=== PATIENT | male | born 1945 | race Caucasian/White ===

== ENCOUNTER 2020-02-17 12:38 | Emergency (ER) | payer MEDICARE, MEDICAID, SELFPAY ==
[2020-02-17] VITALS (21 sets, daily range): BP systolic 54–187; BP diastolic 41–123; PULSE 0–154; RESP 12–83; TEMP 39.4; O2SAT 93–96; BMI 26.4
[2020-02-17] MEDS: succinylcholine 20 mg/mL SDV 10mL 160 MG IVP (12:45)
[2020-02-17] MEDS: vecuronium 10 mg SDV IVP (12:49)
--- NOTE | 2020-02-17 12:52 | XRR_ITS ---
PROCEDURE INFORMATION: Exam: XR Chest, 1 View Exam date and time: 02/17/2020 1:22 PM Age: 74 years old Clinical indication: Device placement; Ett placement (vent status); Patient HX: SOB -ett and og placed TECHNIQUE: Imaging protocol: XR of the chest Views: 1 view. COMPARISON: No relevant prior studies available. FINDINGS: Tubes, catheters and devices: Endotracheal and feeding tubes. The endotracheal tube terminates 4 cm above the desirae. Lungs: Emphysematous change, interstitial prominence, and left basilar airspace/pleural disease. Heart/Mediastinum: Cardiomegaly. Bones/joints: Osteopenia and degenerative change. XR/XR chest 1V portable [id number] IMPRESSION: 1. Endotracheal and feeding tubes. The endotracheal tube terminates 4 cm above the desirae. 2. Emphysematous change, interstitial prominence, and left basilar airspace/pleural disease.
--- NOTE | 2020-02-17 13:00 | ECG_ITS ---
Measurements Intervals [place] Rate: 140 P: [place]: 0 QRS: -36 QRSD: 76 T: 79 QT: 250 QTc: 382 ATRIAL FLUTTER/TACHYCARDIA WITH RAPID VENTRICULAR RESPONSE INFERIOR MYOCARDIAL INFARCTION [40+ ms Q WAVE AND/OR ST/T ABNORMALITY IN II/aVF], PROBABLY OLD Compared to ECG 02/19/2015 12:31:56 Myocardial infarct finding now present Sinus bradycardia no longer present Intraventricular conduction delay no longer present T-wave abnormality no longer present Electronically Signed On 02-17-2020 21:02:24 CDT by Mirlande Dunn M.D. [email or web address]
[2020-02-17 13:28] LABS: Troponin(5th) Baseline 49 ng/L (0-15)
[2020-02-17] MEDS: propofol 1,000 MG/100 ML INJ 2.6 MG IV (13:29)
[2020-02-17 13:33] LABS: Alanine Aminotransferase 180 U/L (0-41); Albumin Level 4.3 g/dL (3.5-5.2); Alkaline Phosphatase 154 IU/L (40-130); Anion Gap 25.1 (5-19); Aspartate Amino Transferase 257 U/L (0-40); Blood Urea Nitrogen 29 mg/dL (8-23); Calcium 9.5 mg/dL (8.5-10.5); Carbon Dioxide 19 mmol/L (22-29); Chloride 98 mmol/L (98-107); Globulin 2.6 g/dL (1.3-4.6); Glucose 99 mg/dL (65-115); NT Pro B Type Natriuretic Pept 14742 pg/mL (0-450); Osmolality Calculated 281 mOsm/kg (285-295); Potassium 5.1 mmol/L (3.5-5.1); Sodium 137 mmol/L (136-145); Total Bilirubin 5.6 mg/dL (0.15-1.2); Total Protein 6.9 g/dL (6.6-8.7)
[2020-02-17 13:47] LABS: Basophils # 0.1 10^3/uL (0.0-0.1); Basophils % 0.5 %; Eosinophils # 0.1 10^3/uL (0.0-0.8); Eosinophils % 0.9 %; Hematocrit 54.1 % (42.0-52.0); Hemoglobin 16.4 g/dL (11.7-16.6); Lymphocytes # 0.5 10^3/uL (0.8-4.8); Mean Corpuscular HGB Conc 30.3 g/dL (30.0-36.0); Mean Corpuscular Hemoglobin 31.5 pg (28.0-34.0); Mean Platelet Volume 12.2 fL (7.4-10.4); Monocytes # 0.4 10^3/uL (0.2-0.9); Monocytes % 3.3 %; Neutrophils # 11.6 10^3/uL (1.8-7.7); Neutrophils % 88.6 %; Nucleated Red Blood Cells # 0.1 /100WBC; Nucleated Red Blood Cells % 0.8 %; Platelet Count 52 10^3/cmm (130-400); Red Cell Distribution Width 12.9 % (12.1-15.1); White Blood Count 13.1 10^3/uL (4.0-10.0)
[2020-02-17 13:53] LABS: Lactate (Lactic Acid level) 6.7 mmol/L (0.5-2.2)
[2020-02-17 14:24] LABS: ABG PCO2 57.4 mmHg (35-45); ABG PH Result 7.19 (7.35-7.45); Base Excess ABG -7.4 mmol/L (-2.0-2.0); Blood Gas Allen Test Pos; Blood Gas Operator Identificat glc; Blood Gas Sample Site Radial, left; Blood Gas Sample Type Arterial; Blood Gas Tidal Volume 0.5; HCO3 ABG 21.9 mmol/L (22-26); Oxygen Device VENT
[2020-02-17 14:59] LABS: Troponin 5 2HR 55.27 ng/L (0-15); Troponin 5 2HR Delta 6.27 ABS# (0-10)
[2020-02-17 15:12] LABS: Influenza A by IFA Negative (Negative); Influenza B by IFA Negative (Negative)
--- NOTE | 2020-02-17 16:08 | XRR_ITS ---
PROCEDURE INFORMATION: Exam: XR Chest, 1 View Exam date and time: 02/17/2020 4:09 PM Age: 74 years old Clinical indication: Device placement; ETT placement (vent status); Patient HX: Post tube placement; Additional info: Central line placement TECHNIQUE: Imaging protocol: XR of the chest Views: Frontal portable supine view of the chest. COMPARISON: CR XR chest 1V portable [id number] 02/17/2020 1:09 PM FINDINGS: Tubes, catheters and devices: The endotracheal tube tip is approximately 5.5 cm above the desirae. The feeding tube tip is not seen below the lower thoracic level, possibly due to technical factors. EKG leads are present overlying the chest. The right internal jugular venous catheter tip is in the cavoatrial junction. Lungs: Stable left basilar pulmonary subsegmental atelectasis. Mild medial right basilar pulmonary subsegmental atelectasis. The lungs are otherwise peripherally clear bilaterally. The pulmonary vasculature is normal. Pleural space: No definite pleural effusion. No pneumothorax. Heart/Mediastinum: The heart is normal in size and contour. Mediastinum: Stable. Bones/joints: Stable. XR/XR chest 1V portable [id number] IMPRESSION: 1. Stable left basilar pulmonary subsegmental atelectasis. 2. Mild medial right basilar pulmonary subsegmental atelectasis.
[2020-02-17] MEDS: sodium bicarbonate 8.4% 1 mEq/mL 50mL Syr 50 MEQ IVP (16:20)
--- NOTE | 2020-02-17 16:57 | PM.HP ---
Providers/Chief Complaint Primary Care Provider: Leslie Broderick Chief Complaint: SOB History of Present Illness Anton Orellana is a 74 year old male, Medications/Allergies Home Medications Medication Instructions Recorded Confirmed Last Taken Type albuterol sulfate 1 puff INHALATION Q4H PRN 02/17/20 02/17/20 Unknown History aspirin 81 mg PO DAILY 02/17/20 02/17/20 Unknown History cimetidine 400 mg PO BID 02/17/20 02/17/20 Unknown History dextromethorphan-guaifenesin 1 tab PO Q12H PRN 02/17/20 02/17/20 Unknown History [Mucinex DM] [id number]-[id number]-[id number] 1 inh INHALATION DAILY 02/17/20 02/17/20 Unknown History [Trelegy Ellipta] furosemide [Lasix] 20 mg PO DAILY 02/17/20 02/17/20 Unknown History meloxicam 15 mg PO DAILY 02/17/20 02/17/20 Unknown History metoprolol tartrate 25 mg PO BID 02/17/20 02/17/20 Unknown History pantoprazole 40 mg PO DAILY 02/17/20 02/17/20 Unknown History potassium chloride 10 meq PO BID 02/17/20 02/17/20 Unknown History rosuvastatin [Crestor] 10 mg PO DAILY 02/17/20 02/17/20 Unknown History Allergies Allergy/AdvReac Type Severity Reaction Status Date / Time codeine [From Robitussin A-C] Allergy Unknown Verified 02/17/20 12:49 guaifenesin Allergy Unknown Verified 02/17/20 12:49 [From Robitussin A-C] hydrocodone Allergy Unknown Verified 02/17/20 12:49 simvastatin [From Zocor] Allergy Unknown Verified 02/17/20 12:49 Vitals/I&O/Wt Last Vital Signs Temp 103.0 F H 02/17/20 12:46 Pulse 135 H 02/17/20 14:40 Resp 21 H 02/17/20 14:40 BP 77/62 02/17/20 14:40 Pulse Ox 96 02/17/20 13:52 Weight last 48 hrs Weight 86.183 kg Data : 02/17/20 13:38 02/17/20 12:10 Micro: Microbiology 02/17/20 13:25 Gram Stain - Final Sputum - Endotracheal Tube Aspirate 02/17/20 13:38 Blood Culture - Preliminary Blood SPECIMEN COLLECTED 02/17/20 12:50 Blood Culture - Preliminary Blood SPECIMEN COLLECTED Coding Level of Care Code 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
[2020-02-17] MEDS: DOPamine drip 400 MG/250 ML PREMIX 16.2 MG IV (17:12)
--- NOTE | 2020-02-17 17:42 | P.DES_ITS ---
Discharge Providers DDS Date Summary Completed: 02/17/20 Attending Provider at Admission: Time of : 16:42 Primary Care Provider: Leslie LONDON Diagnoses Hospital Diagnoses (1) Acute respiratory failure with hypoxia: (2) Lactic acidosis: (3) Septic shock: (4) Acute pulmonary edema: (5) Acute exacerbation of congestive heart failure: (6) Pneumonia: (7) COVID-19 virus test result unknown: (8) NSTEMI (non-ST elevated myocardial infarction): Reason for Visit Reason for Visit: SOB Summary Date and Time of : Date of : 02/17/20 Time of : 16:42 Summary: Summary: Anton Orellana is a 74 year old male, with a past medical history of CAD status post stenting x3, history of multiple myocardial infarcts, history of stroke, history of CHF, history of liver cirrhosis, history of hypertension, history of hyperlipidemia, history of GERD, history of severe emphysema with COPD who presents to [facility] as a transfer from [facility] due to complaints of shortness of breath. All the history was obtained by family at bedside, and family over the phone as patient was intubated. According to family members roughly a month ago, patient has had a COPD exacerbation, had fevers, was tested for COVID was negative, got antibiotics, steroids, slightly improved. Patient lives by himself, has 3 daughters, 2 daughters and [place]. According to daughter, for the last few days, patient has had progressive shortness of breath, complaints of fevers, weakness, complaints of chest pain. Patient called his daughter this morning, stating that he was severely short of breath and having chest pain, so he was taken to [facility] room [facility]. According to ER physician, at [facility], he was diagnosed with heart failure exacerbation, pulmonary edema, given Lasix, but did not improve. He was transferred to [facility], and [facility] patient was found to have acute hypoxic respiratory failure, was found to be in respiratory distress, so was intubated by ER physician, he was also found to be fairly tachycardic, was given metoprolol, became hypotensive, was placed on Levophed. Patient was quite hypotensive, sounded septic, with hypotensive episodes, temperature of 103, tachycardic heart rate 130s, white blood cell count of 13.1, lactic acid of 6.7, ABG pH 7.1, creatinine 2.3, BNP 14 742, chest x-ray showed bilateral pulmonary edema, bibasilar subsegmental atelectasis, medial right basilar 6 pulmonary subsegmental atelectasis. I was called for admission, looked like at that point patient was septic, septic shock, secondary to likely pneumonia, I was highly concerned for COVID-19, COVID-19 testing was ordered, also there was concern for severe heart failure, and NSTEMI. I advised ER physician Dr. Severino to place central line, and transfer patient to ICU, with plans on broad-spectrum antibio tics, diuresis, COVID-19 precautions, fentanyl, propofol, art line placement. When I arrived to the ICU, I was told by ER physician that during central line placement, patient had coded, patient went into asystole with no pulse, he received 2 rounds of epi, bicarb, went into PEA, then sinus tachycardia with a pulse. The code lasted roughly 6 minutes. 1 of patient's daughters was at bedside, I discussed patient patient's daughter patient's critical status, poor prognosis, likely patient has septic shock, sepsis secondary pneumonia, COVID- 19, pulmonary edema, acute flash pulmonary edema, heart failure, and NSTEMI. We can continue all medical interventions, versus making him comfort. Patient's daughter stated above everything else, she wants her father to remain comfortable. But wanted to him to remain a full code, wanted to continue all medical interventions and last something changed. I had put in all my orders for patient to get antibiotics, Lasix, propofol, fentanyl, all my ICU orders. I try to go outside to find family members, but patient's family members were not there. Again patient went into a PEA did not have a pulse, I was present during this code, he had epi running, he got 1 mg of epi in addition, got bicarb, got chest compressions, CPR, went back into sinus tachycardia with a pulse. I spoke to patient daughter at bedside, advised that patient's status is quite critical, prognosis is quite poor, that if he were to code again what would she want us to do. She stated that above all she did not want him to suffer, and if he were to code again, or his heart were to stop she wanted us not to perform CPR again, she did not want any drugs as per ACLS, and she just wanted him to pass away comfortably. Patient at this point was on the ventilator. I also spoke to patient's 2 sisters over the phone, who are in [place], they agreed that above else they wanted their father to remain comfortable, if his heart were to stop again, or he were to go into an abnormal rhythm, they wanted no more chest compressions, no more drugs per ACLS, they wanted him to remain comfortable. Over the next few minutes, patient again lost his pulse, no carotid pulse was palpable by me, no femoral pulse, rhythm was pulseless electrical activity of the heart, I confirmed with family member at bedside that she did not want any CPR or any drugs as per ACLS, she said no she wanted him to remain comfortable. But she wanted him to remain on the ventilator until her sisters at bedside could arrive. I was concerned about possible COVID-19 exposure to family members, initially I had advised family members that if I am highly suspicious of COVID-19, I would not advise for them to be in the room, and already 1 daughter was in the room already (which was allowed by ER staff and ER physician), however ER physician, and ER staff allowed family members into the room. At this point, patient did not have a pulse, had pulseless electrical electrical activity of the heart, patient's family said their goodbyes, at 4:42 PM patient went into asystole, his ventilation was stopped. Patient was pronounced at 4:42 PM. Had no carotid pulse, no femoral pulse, asystole, was not breathing on his own with a ventilator was stopped. At the time of , COVID-19 testing is not known, and is currently pending Additional Data: Confirmation of as documented by pronouncing clinician: no pulse and no respirations Family: at bedside Additional persons at bedside: nursing staff Attending/PCP notified?: I am attending Was code activated?: Yes Discharge Plan Discharge Prescriptions: No Action cimetidine 400 mg Tablet 400 mg PO BID RF: 0 meloxicam 15 mg Tablet 15 mg PO DAILY RF: 0 potassium chloride 10 mEq Tablet Extended Release 10 meq PO BID RF: 0 pantoprazole 40 mg Tablet,Delayed Release (Dr/Ec) 40 mg PO DAILY RF: 0 aspirin 81 mg Tablet,Chewable 81 mg PO DAILY RF: 0 Lasix 20 mg Tablet 20 mg PO DAILY RF: 0 Mucinex DM 30-600 mg Tablet Extended Release 12 Hr 1 tab PO Q12H PRN (Reason: mucous) RF: 0 albuterol sulfate 90 mcg/actuation Hfa Aerosol Inhaler 1 puff INHALATION Q4H PRN (Reason: Shortness Of Breath) RF: 0 Crestor 10 mg Tablet 10 mg PO DAILY RF: 0 metoprolol tartrate 25 mg Tablet 25 mg PO BID RF: 0 Trelegy Ellipta 100-62.5-25 mcg Blister With Device 1 inh INHALATION DAILY RF: 0 DS Attestations Time Spent in /Discharge Care*: less than 30 min Quality - AMI: AMI present?: No Quality - Stroke: CVA present?: No Quality - VTE: VTE present?: No Coding Level of Care Code Acute Private Branch Exchange Operator for [facility] Fwd Diagnoses Acute respiratory failure with hypoxia J96.01 Lactic acidosis E87.2 Septic shock A41.9; R65.21 Acute pulmonary edema J81.0 Acute exacerbation of congestive heart failure I50.9 Pneumonia J18.9 COVID-19 virus test result unknown Z20.828 NSTEMI (non-ST elevated myocardial infarction) I21.4
--- NOTE | 2020-02-17 19:13 | W.ED.SOB ---
HPI - SOB/Dyspnea General: Chief Complaint: Shortness of Breath/Dyspnea Stated Complaint: SOB Time Seen by Provider: 02/17/20 12:53 Source: EMS and other (Referring facility) Mode of arrival: EMS Limitations: altered mental status and other History of Present Illness: HPI Narrative: Patient is a 74-year-old male who was brought in as a transfer from [facility] in [place] in respiratory distress and hypotensive. According to the report and his daughter the patient was in his usual state of health until yesterday when he started to complain of chest pain and shortness of breath. He eventually decided to go to the emergency department to be seen. In the emergency department at [place] he was noted to be tachycardic and in heart failure. He was then given 40 mg of IV Lasix as well as a total of 5 mg of metoprolol for his heart rate. He is oxygen levels were in the low 90s and so he was placed on oxygen via nasal cannula. After the second dose of metoprolol he started to get hypotensive and also was noted to have reduction in his responsiveness. The patient was tachypneic throughout his stay in their facility. Due to the hypotension he was started on Levophed drip. He was then transferred to this facility for further evaluation. On arrival to our facility the patient was in severe respiratory distress, with an altered mentation. He was tachypneic with very shallow breaths. He was unresponsive and was unable to give a history. Because of the acuity of his condition, respiratory distress and in order to protect his airway a decision was made to immediately intubate the patient on arrival. MD elicited complaint: shortness of breath and chest pain Pertinent past history: COPD and congestive heart failure Onset (ago): day(s) (1) Review of Systems General: Reports: ROS unobtainable due to medical condition and ROS unobtainable due to mental status Physical Exam Narrative: EXAM NARRATIVE: Patient was obtunded, pale, tachypneic and with ineffective shallow respirations. He was febrile on arrival with a temperature of 103 HENMT: COMMON NORMALS: normocephalic and atraumatic HEAD & SCALP: normocephalic and atraumatic Resp: EFFORT & INSPECTION: Yes decreased respiratory effort, Yes pursed lip breathing and Yes labored AUSCULTATION: rales and diminished lung sounds Cardio: RATE: tachycardic GI: COMMON NORMALS: Soft to palpation INSPECTION: Yes normal to inspection PALPATION: Yes Soft to palpation Extremity: GENERAL: Yes edema Procedures Central Line Placement Right IJ: Time Out Performed: Yes Patient Placed on Monitor/Pulse Ox: Yes MD Prep: mask, gown and gloves Central Line Prep: Chlorhexidine scrub Ultrasound Used for Placement: Yes Central Line Lumen Inserted: triple Post Procedure: sutured in place, good blood return, all ports aspirated, flushed, capped and sterile dressing applied Post Procedure X-Ray: tip of catheter in good position and no pneumothorax seen Patient Tolerated Procedure: well Complications: none Intubation sedative: Etomidate Mg Given: 24 paralytic: Succinylcholine Mg Given: 160 Laryngoscope: Keily ET Tube Size: 8 ET Tube Uncuffed: Yes Tube Secured Depth (cm): 26 Tube Secured Location: lips Tube Placement Confirmation: visualized tube passing through cords, equal breath sounds bilaterally, no breath sounds over epigastrium and confirmation by capnometry Patient Tolerated Procedure: well Intubation Complications: none Course Vital Signs: Vital signs: Vital Signs Temperature 103.0 F H 02/17/20 12:46 Pulse Rate 78 02/17/20 16:40 Respiratory Rate 21 H 02/17/20 16:40 Blood Pressure 70/46 02/17/20 16:30 Pulse Oximetry 96 02/17/20 13:52 MDM - SOB/Dyspnea MDM Narrative: Medical decision making narrative: 74-year-old gentleman who came into the department in respiratory failure and septic shock. [facility] where he had complained of chest pain and shortness of breath. While he was there he had progressively worsening hypotension and alteration in his mentation. When he arrived in this facility he was in hypercapnic hypoxic respiratory failure, he was septic, he was in congestive heart failure. He was essentially in multiorgan failure. the patient was very ill and on arrival he was intubated and mechanically ventilated. During his stay in the emergency department he went into cardiac arrest twice, following each episode high-quality CPR was initiated and we achieved ROSC each time. After the second time the family decided that if he went into cardiac arrest again we were not to resuscitate him. During his emergency department stay he needed to be on 2 pressors, was given antibiotics, but because of his severe heart failure was not given any fluids. Despite our best efforts the patient had a third cardiac arrest and was eventually pronounced at 1642 hrs. Medical Records: Attestation: I reviewed the patient's medical records. Lab Data: Attestation: I reviewed the patient's lab results. Labs: Lab Results 02/17/20 02/17/20 02/17/20 Range/Units 12:10 12:10 12:10 WBC (4.0-10.0) 10^3/ uL RBC (4.1-5.3) 10^6/u L Hgb (11.7-16.6) g/dL Hct (42.0-52.0) % MCV (80-94) fL MCH (28.0-34.0) pg MCHC (30.0-36.0) g/dL RDW (12.1-15.1) % Plt Count (130-400) 10^3/c mm MPV (7.4-10.4) fL Neut % (Auto) % Lymph % (Auto) % Phillips % (Auto) % Eos % (Auto) % Baso % (Auto) % Neut # (Auto) (1.8-7.7) 10^3/u L Lymph # (Auto) (0.8-4.8) 10^3/u L Phillips # (Auto) (0.2-0.9) 10^3/u L Eos # (Auto) (0.0-0.8) 10^3/u L Baso # (Auto) (0.0-0.1) 10^3/u L Nucleated RBC % (a uto) % Nucleated RBCs # /100WBC Specimen Type Sample Site ABG pH (7.35-7.45) ABG pCO2 (35-45) mmHg ABG pO2 (80.0-100.0) mmH g ABG HCO3 (22-26) mmol/L ABG Base Excess (-2.0-2.0) mmol/ L Andrez Test Hematocrit (42-52) % Respiration Rate % O2 Delivery Device FiO2 % Tidal Volume PEEP cmH20 Electrical Maintenance Technician ID Sodium 137 (136-145) mmol/L Potassium 5.1 (3.5-5.1) mmol/L Chloride 98 (98-107) mmol/L Carbon Dioxide 19 L (22-29) mmol/L Anion Gap 25.1 H (5-19) BUN 29 H (8-23) mg/dL Creatinine 2.3 H (0.7-1.2) mg/dL Glucose 99 (65-115) mg/dL Calculated Osmolal ity 281 L (285-295) mOsm/k g Lactate 6.7 H* (0.5-2.2) mmol/L Calcium 9.5 (8.5-10.5) mg/dL Total Bilirubin 5.6 H (0.15-1.2) mg/dL AST 257 H (0-40) U/L ALT 180 H (0-41) U/L Alkaline Phosphata se 154 H (40-130) IU/L Troponin T Baselin e 49 H (0-15) ng/L Troponin T 120 Min [place] (0-15) ng/L Delta Troponin T (0-10) ABS# NT-Pro-B Natriuret Pep 02116 H (0-450) pg/mL Total Protein 6.9 (6.6-8.7) g/dL Albumin 4.3 (3.5-5.2) g/dL Globulin 2.6 (1.3-4.6) g/dL Influenza Type A A g (Negative) Influenza Type B A g (Negative) 02/17/20 02/17/20 02/17/20 Range/Units 13:38 14:13 14:30 WBC 13.1 H (4.0-10.0) 10^3/ uL RBC 5.20 (4.1-5.3) 10^6/u L Hgb 16.4 (11.7-16.6) g/dL Hct 54.1 H (42.0-52.0) % MCV 104.0 H (80-94) fL MCH 31.5 (28.0-34.0) pg MCHC 30.3 (30.0-36.0) g/dL RDW 12.9 (12.1-15.1) % Plt Count 52 L (130-400) 10^3/c mm MPV 12.2 H (7.4-10.4) fL Neut % (Auto) 88.6 % Lymph % (Auto) 4.0 % Phillips % (Auto) 3.3 % Eos % (Auto) 0.9 % Baso % (Auto) 0.5 % Neut # (Auto) 11.6 H (1.8-7.7) 10^3/u L Lymph # (Auto) 0.5 L (0.8-4.8) 10^3/u L Phillips # (Auto) 0.4 (0.2-0.9) 10^3/u L Eos # (Auto) 0.1 (0.0-0.8) 10^3/u L Baso # (Auto) 0.1 (0.0-0.1) 10^3/u L Nucleated RBC % (a uto) 0.8 % Nucleated RBCs # 0.1 /100WBC Specimen Type Arterial Sample Site Radial, left ABG pH 7.19 L (7.35-7.45) ABG pCO2 57.4 H (35-45) mmHg ABG pO2 268.0 H* (80.0-100.0) mmH g ABG HCO3 21.9 L (22-26) mmol/L ABG Base Excess -7.4 L (-2.0-2.0) mmol/ L Andrez Test Pos Hematocrit 53.0 H (42-52) % Respiration Rate 14.0 % O2 Delivery Device Vent FiO2 100.0 % Tidal Volume 0.5 PEEP 8.0 cmH20 Electrical Maintenance Technician ID glc Sodium (136-145) mmol/L Potassium (3.5-5.1) mmol/L Chloride (98-107) mmol/L Carbon Dioxide (22-29) mmol/L Anion Gap (5-19) BUN (8-23) mg/dL Creatinine (0.7-1.2) mg/dL Glucose (65-115) mg/dL Calculated Osmolal ity (285-295) mOsm/k g Lactate (0.5-2.2) mmol/L Calcium (8.5-10.5) mg/dL Total Bilirubin (0.15-1.2) mg/dL AST (0-40) U/L ALT (0-41) U/L Alkaline Phosphata se (40-130) IU/L Troponin T Baselin e (0-15) ng/L Troponin T 120 Min [place] 55.27 H (0-15) ng/L Delta Troponin T 6.27 (0-10) ABS# NT-Pro-B Natriuret Pep (0-450) pg/mL Total Protein (6.6-8.7) g/dL Albumin (3.5-5.2) g/dL Globulin (1.3-4.6) g/dL Influenza Type A A g (Negative) Influenza Type B A g (Negative) 02/17/20 Range/Units 14:43 WBC (4.0-10.0) 10^3/ uL RBC (4.1-5.3) 10^6/u L Hgb (11.7-16.6) g/dL Hct (42.0-52.0) % MCV (80-94) fL MCH (28.0-34.0) pg MCHC (30.0-36.0) g/dL RDW (12.1-15.1) % Plt Count (130-400) 10^3/c mm MPV (7.4-10.4) fL Neut % (Auto) % Lymph % (Auto) % Phillips % (Auto) % Eos % (Auto) % Baso % (Auto) % Neut # (Auto) (1.8-7.7) 10^3/u L Lymph # (Auto) (0.8-4.8) 10^3/u L Phillips # (Auto) (0.2-0.9) 10^3/u L Eos # (Auto) (0.0-0.8) 10^3/u L Baso # (Auto) (0.0-0.1) 10^3/u L Nucleated RBC % (a uto) % Nucleated RBCs # /100WBC Specimen Type Sample Site ABG pH (7.35-7.45) ABG pCO2 (35-45) mmHg ABG pO2 (80.0-100.0) mmH g ABG HCO3 (22-26) mmol/L ABG Base Excess (-2.0-2.0) mmol/ L Andrez Test Hematocrit (42-52) % Respiration Rate % O2 Delivery Device FiO2 % Tidal Volume PEEP cmH20 Electrical Maintenance Technician ID Sodium (136-145) mmol/L Potassium (3.5-5.1) mmol/L Chloride (98-107) mmol/L Carbon Dioxide (22-29) mmol/L Anion Gap (5-19) BUN (8-23) mg/dL Creatinine (0.7-1.2) mg/dL Glucose (65-115) mg/dL Calculated Osmolal ity (285-295) mOsm/k g Lactate (0.5-2.2) mmol/L Calcium (8.5-10.5) mg/dL Total Bilirubin (0.15-1.2) mg/dL AST (0-40) U/L ALT (0-41) U/L Alkaline Phosphata se (40-130) IU/L Troponin T Baselin e (0-15) ng/L Troponin T 120 Min [place] (0-15) ng/L Delta Troponin T (0-10) ABS# NT-Pro-B Natriuret Pep (0-450) pg/mL Total Protein (6.6-8.7) g/dL Albumin (3.5-5.2) g/dL Globulin (1.3-4.6) g/dL Influenza Type A A g Negative (Negative) Influenza Type B A g Negative (Negative) Imaging Data^: CXR: Radiologist's impression: [place] [address] XRay Report Signed Patient: Anton Orellana #: [id number] : 4Acct#:[id number] Age/Sex: 74 / MADM Date: 02/17/20 Loc: [facility]/Bed: Attending Dr: Ordering Provider/Ordering MD: Raquel Severino MD, [facility] [place] Date of Service: 02/17/20 Procedure(s): XR chest 1V portable [id number] Accession Number(s): [id number] Report Number: [id number] PROCEDURE INFORMATION: Exam: XR Chest, 1 View Exam date and time: 02/17/2020 4:09 PM Age: 74 years old Clinical indication: Device placement; ETT placement (vent status); Patient HX: Post tube placement; Additional info: Central line placement TECHNIQUE: Imaging protocol: XR of the chest Views: Frontal portable supine view of the chest. COMPARISON: CR XR chest 1V portable [id number] 02/17/2020 1:09 PM FINDINGS: Tubes, catheters and devices: The endotracheal tube tip is approximately 5.5 cm above the desirae. The feeding tube tip is not seen below the lower thoracic level, possibly due to technical factors. EKG leads are present overlying the chest. The right internal jugular venous catheter tip is in the cavoatrial junction. Lungs: Stable left basilar pulmonary subsegmental atelectasis. Mild medial right basilar pulmonary subsegmental atelectasis. The lungs are otherwise peripherally clear bilaterally. The pulmonary vasculature is normal. Pleural space: No definite pleural effusion. No pneumothorax. Heart/Mediastinum: The heart is normal in size and contour. Mediastinum: Stable. Bones/joints: Stable. XR/XR chest 1V portable [id number] IMPRESSION: 1. Stable left basilar pulmonary subsegmental atelectasis. 2. Mild medial right basilar pulmonary subsegmental atelectasis. Dictated By:Holden Blancas MD Signed By:Holden Blancasigned Date/Time:02/17/201653 DD/ 51 EKG Data^: EKG 1: Attestation: I personally reviewed and interpreted this EKG as follows: EKG Interpretation Date: 02/17/20 EKG interpretation time: 13:09 Prior EKG tracings: not available for review Interpretation: Atrial flutter with rapid ventricular response. Heart rate [address] changes Critical Care Time Critical Care Time: Critical Care Time: Yes Total Critical Care Time: 120 Attestation: This case had a high probability of a clinically significant, sudden, or life threatening deterioration of this patient's condition which required my full and direct attention, intervention and personal management. Discharge Plan Discharge Patient Disposition: Clinical Impression: Acidosis, lactic, Septic shock, Multi-organ failure with heart failure Acute respiratory failure Qualifiers: Respiratory failure complication: hypoxia and hypercapnia Qualified Code(s): J96.01 - Acute respiratory failure with hypoxia Interventions: ED Discharge Assessment Last Done: 02/17/20 19:27 ED Charges Last Done: 02/17/20 19:27 Discharge Date/Time: 02/17/20 19:00 Coding Level of Care Code ED Swimming Pool Cleaner for Chg Fwd Exam Detailed
[2020-02-18 04:50] LABS: Glucose Point of Care 153 mg/dL (70-110)
[2020-02-18 20:19] LABS: Coronavirus Lab Test PTC N
== END 2020-02-17 19:00 | disposition expired ==
PROVIDERS: Emergency Provider Family Medicine; PCP Nurse Practitioner Family
DX: J96.01 Acute respiratory failure with hypoxia (principal); E87.2 Acidosis; I50.9 Heart failure, unspecified; R07.9 Chest pain, unspecified
CPT/HCPCS: 12345; 31500; 36415; 36416; 36556; 36600; 71045; 80053; 82803; 82962; 83605; 83880; 84484; 85025; 87040; 87070; 87077; 87186; 87205; 87635; 87804; 93005; 94002; 94799; 96365; 96366; 96367; 96368; 96375; 99284; 99291; C1751; J0171; J0282; J0330; J1265; J2704; J3490